=== PATIENT | male | born 1970 | race Caucasian/White ===

== ENCOUNTER 2018-10-18 09:41 | Emergency (ER) | payer OTHER ==
--- NOTE | 2018-10-18 11:06 | ER ---
Nurse's Notes [facility] Name: Phil Krishnan Age: 48 yrs Sex: Male : 1970 Arrival Date: 10/18/2018 Time: 09:47 Bed 20 Private MD: None, None Diagnosis: Deep Venous Thrombosis of LLE Presentation: 10/18 09:54 Presenting complaint: Patient states: left calf tenderness and swelling x 1 week, jl7 denies extended travel. Transition of care: patient was not received from another setting of care. Onset of symptoms was October 09, 2018. Risk Assessment: Do you want to hurt yourself or someone else? Patient reports no desire to harm self or others. Initial Sepsis Screen: Does the patient meet any 2 criteria? No. Patient's initial sepsis screen is negative. Does the patient have a suspected source of infection? No. Patient's initial sepsis screen is negative. Care prior to arrival: None. 09:54 Method Of Arrival: Ambulatory 7 09:54 Acuity: BUCKY 3 jl7 Triage Assessment: 09:56 General: Appears in no apparent distress. uncomfortable, Behavior is calm, cooperative, jl7 appropriate for age. Pain: Complains of pain in left calf Pain currently is 4 out of 10 on a pain scale. Quality of pain is described as tender, Pain began 1 week ago Is continuous. EENT: No signs and/or symptoms were reported regarding the EENT system. Neuro: Level of Consciousness is awake, alert, obeys commands, Oriented to person, place, time, situation. Cardiovascular: Patient's skin is warm and dry. Respiratory: Airway is patent Respiratory effort is even, unlabored, Respiratory pattern is regular, symmetrical. Derm: Skin is pink, warm \T\ dry. Historical: - Allergies: 09:56 No Known Allergies; jl7 - Home Meds: 09:56 None [Active]; jl7 - PMHx: 09:56 None; jl7 - Immunization history:: Adult Immunizations unknown. - Social history:: Smoking status: Patient/guardian denies using tobacco. - Ebola Screening: : No symptoms or risks identified at this time. - Family history:: not pertinent. - Hospitalizations: : No recent hospitalization is reported. Screenin:13 Abuse screen: Denies threats or abuse. Denies injuries from another. Nutritional bp screening: No deficits noted. Tuberculosis screening: No symptoms or risk factors identified. Fall Risk None identified. Assessment: 10:00 General: Appears in no apparent distress. comfortable, Behavior is cooperative, bp appropriate for age, anxious. Pain: Complains of pain in left calf. Neuro: Level of Consciousness is awake, alert, obeys commands, Oriented to person, place, time, situation, Appropriate for age. Cardiovascular: No deficits noted. Respiratory: Airway is patent Respiratory effort is even, unlabored, Respiratory pattern is regular, symmetrical. GI: No signs and/or symptoms were reported involving the gastrointestinal system. : No signs and/or symptoms were reported regarding the genitourinary system. EENT: No deficits noted. Derm: No deficits noted. Musculoskeletal: Swelling present in left calf. 10:57 Reassessment: MD AT B/S. PT U/S POSITIVE FOR DVT. bp 11:07 Reassessment: Sent fax to pharmacy for the Xarelto. rb1 11:37 Reassessment: PT D/C HOME AMBULATORY WITH FAMILY, DX WITH DVT. bp Vital Signs: 09:56 BP 143 / 66; Pulse 75; Resp 16 S; Pulse Ox 96% on R/A; Weight 131.54 kg (R); Height 5 jl7 ft. 9 in. (175.26 cm) (R); Pain 4/10; 10:58 BP 157 / 94; Pulse 62; Resp 14; Pulse Ox 97% ; bp 09:56 Body Mass Index 42.83 (131.54 kg, 175.26 cm) jl7 ED Course: 09:47 Patient arrived in ED. sb2 09:48 None, None is Private Physician. sb2 09:49 Orlando Cornelius, RN is Primary Nurse. bp 09:51 Jabari March MD is Attending Physician. rn 09:56 Triage completed. jl7 09:56 Arm band placed on right wrist. jl7 10:13 Patient has correct armband on for positive identification. Placed in gown. Bed in low bp position. Call light in reach. Side rails up X2. Adult w/ patient. 10:29 Patient taken to ultrasound. via wheelchair. lc3 10:30 Ultrasound completed. Patient tolerated well. Patient moved back from ultrasound. lc3 10:43 Extremity Venous Uni Ltd US In Process Unspecified. EDMS 11:37 No provider procedures requiring assistance completed. Patient did not have IV access bp during this emergency room visit. Administered Medications: 11:36 Drug: Xarelto 15 mg Route: PO; bp 11:36 Follow up: Response: Medication administered at discharge. bp Outcome: 11:01 Discharge ordered by . rn 11:37 Discharged to home ambulatory, with family. bp 11:37 Condition: stable 11:37 Discharge instructions given to patient, Instructed on discharge instructions, follow up and referral plans. medication usage, Demonstrated understanding of instructions, follow-up care, medications, Prescriptions given X 1. 11:38 Patient left the ED. bp Signatures: Dispatcher [employer] EDMS Jabari March MD MD rn Cunningham, Laulita lc3 Barber, Rebecca, RN RN rb1 Moraima Melendez RN RN [email or web address] Orlando Cornelius RN RN Margo Bolton sb2
--- NOTE | 2018-10-18 11:06 | EDPHYS ---
Physician Documentation [facility] Name: Phil Krishnan Age: 48 yrs Sex: Male : 1970 Arrival Date: 10/18/2018 Time: 09:47 Bed 20 Private MD: None, None ED Physician Jabari March HPI: 10/18 10:07 This 48 yrs old Male presents to ER via Ambulatory with complaints of POSS rn BLOOD CLOT. 10:07 The patient presents with pain, swelling. The complaints affect the medial aspect of rn left calf. Onset: The symptoms/episode began/occurred 1 week(s) ago. Modifying factors: The symptoms are alleviated by nothing. the symptoms are aggravated by nothing. Severity of symptoms: At their worst the symptoms were mild, in the emergency department the symptoms are unchanged. The patient has not experienced similar symptoms in the past. The patient has been recently seen by a physician:. Reports left leg swelling, began 1 week ago, drove from [place] on Wednesday, on Wednesday noticed swelling and mild soreness, no trauma, was walking a lot during weekend, no fever, no recent surgery. Sent by [facility] physician for evaluation of possible DVT, no hx of dvt/PE.. Historical: - Allergies: 09:56 No Known Allergies; jl7 - Home Meds: 09:56 None [Active]; jl7 - PMHx: 09:56 None; jl7 - Immunization history:: Adult Immunizations unknown. - Social history:: Smoking status: Patient/guardian denies using tobacco. - Ebola Screening: : No symptoms or risks identified at this time. - Family history:: not pertinent. - Hospitalizations: : No recent hospitalization is reported. ROS: 10:07 Constitutional: Negative for fever, chills, and weight loss, Eyes: Negative for injury, rn pain, redness, and discharge, Cardiovascular: Negative for chest pain, palpitations, and edema, Respiratory: Negative for shortness of breath, cough, wheezing, and pleuritic chest pain, Abdomen/GI: Negative for abdominal pain, nausea, vomiting, diarrhea, and constipation, MS/Extremity: + left leg pain and swelling, negative for injury Skin: Negative for injury, rash, and discoloration, Neuro: Negative for headache, weakness, numbness, tingling, and seizure. Exam: 10:07 Constitutional: This is a well developed, well nourished patient who is awake, alert, rn and in no acute distress. Skin: Warm, dry with normal turgor. Normal color with no rashes, no lesions, and no evidence of cellulitis. MS/ Extremity: Pulses equal, no cyanosis. Neurovascular intact. Full, normal range of motion. + LLE swelling with 1+ pitting edema and 2cm greater circumference. Vital Signs: 09:56 BP 143 / 66; Pulse 75; Resp 16 S; Pulse Ox 96% on R/A; Weight 131.54 kg (R); Height 5 jl7 ft. 9 in. (175.26 cm) (R); Pain 4/10; 10:58 BP 157 / 94; Pulse 62; Resp 14; Pulse Ox 97% ; bp 09:56 Body Mass Index 42.83 (131.54 kg, 175.26 cm) jl7 MDM: 09:51 Patient medically screened. rn 10:59 Differential diagnosis:. rn 10:59 Data reviewed: vital signs, nurses notes, radiologic studies, doppler, and as a result, rn I will discharge patient. Counseling: I had a detailed discussion with the patient and/or guardian regarding: the historical points, exam findings, and any diagnostic results supporting the discharge/admit diagnosis, radiology results, the need for outpatient follow up, to return to the emergency department if symptoms worsen or persist or if there are any questions or concerns that arise at home. Special discussion: I discussed with the patient/guardian in detail that at this point there is no indication for admission to the hospital. It is understood, however, that if the symptoms persist or worsen the patient needs to return immediately for re-evaluation. 10/18 09:58 Order name: Extremity Venous Swipe.to ; Complete Time: 11:23 rn Administered Medications: 11:36 Drug: Xarelto 15 mg Route: PO; bp 11:36 Follow up: Response: Medication administered at discharge. bp Disposition: 10/18/18 11:01 Discharged to Home. Impression: Deep Venous Thrombosis of LLE. - Condition is Stable. - Discharge Instructions: Deep Vein Thrombosis. - Prescriptions for Xarelto 20 mg Oral tablet - take 1 tablet by ORAL route once daily; 90 tablet. - Medication Reconciliation Form, Thank You Letter, Antibiotic Education, Prescription Opioid Use form. - Follow up: Private Physician; When: As needed; Reason: Recheck today's complaints, Re-evaluation by your physician. - Problem is an ongoing problem. - Symptoms are unchanged. Signatures: Dispatcher [employer] EDJabari Mcdowell MD MD rn Leal, Jahala, RN RN jl7 Orlando Cornelius RN RN bp Corrections: (The following items were deleted from the chart) 11:38 11:01 10/18/2018 11:01 Discharged to Home. Impression: Deep Venous Thrombosis of LLE. bp Condition is Stable. Forms are Medication Reconciliation Form, Thank You Letter, Antibiotic Education, Prescription Opioid Use. Follow up: Private Physician; When: As needed; Reason: Recheck today's complaints, Re-evaluation by your physician. Problem is an ongoing problem. Symptoms are unchanged. rn
[2018-10-18] MEDS ORDERED: RIVAROXABAN 15 MG TABLET PO ONE (11:15)
--- NOTE | 2018-10-18 11:21 | RAD REPORT ---
EXAM DESCRIPTION: US - Extremity Venous Uni Ltd - 10/18/2018 10:42 am CLINICAL HISTORY: Left leg pain and swelling COMPARISON: None. TECHNIQUE: Real-time sonographic evaluation of the left lower extremity deep venous systems was perf ormed. FINDINGS: Normal compressibility, flow augmentation, phasic flow and spontaneous flow are identified in the right lower extremity common femoral and superficial femoral veins. Echogenic material fills and enlarges the popliteal vein extending into the calf down to the posterior tibial vein level. Only minimal flow is demonstrated at the proximal most aspect of this DVT. No mass or abnormal fluid collection in the soft tissues. IMPRESSION: Acute left leg DVT from knee to ankle.
== END 2018-10-18 11:38 | disposition home or self-care (01) ==
LOC: ER 09:41
DX: I82.4Z2 Acute embolism and thrombosis of unspecified deep veins of left distal lower extremity (principal)
CPT/HCPCS: 93971; 99284

== ENCOUNTER 2021-04-16 07:20 | Emergency (ER) | payer OTHER ==
[2021-04-16] MEDS ORDERED: ONDANSETRON 4 MG/2 ML VIAL ONE (08:07)
[2021-04-16] MEDS ORDERED: MORPHINE 4 MG/ML SYR ONE ×2 (08:07→13:11)
[2021-04-16] MEDS ORDERED: NA CHLORIDE 0.9% 1,000 ML ONE (08:07)
[2021-04-16 08:14] LABS: Absolute Lymphocytes (CBC) 2.1 K/uL (0.7-4.9); Basophils % 0.5 % (0-1.3); Hematocrit 40.5 % (39.6-49.0); Lymphocytes % 35.5 % (15.3-44.8); MPV 8.8 fL (7.6-11.3); RBC Red Blood Cell Count 6.77 M/uL (4.33-5.43)
[2021-04-16 08:34] LABS: ALT/SGPT 55 U/L (12-78); AST/SGOT 28 U/L (15-37); Albumin 3.8 g/dL (3.4-5.0); Alkaline Phosphatase 84 U/L (45-117); BUN Blood Urea Nitrogen 15 mg/dL (7-18); Bicarbonate 26 mmol/L (21-32); Bilirubin Direct 0.2 mg/dL (0-0.2); Bilirubin Total 0.6 mg/dL (0.2-1.0); Glucose Level 91 mg/dL (74-106); Lipase 97 U/L (73-393); Protein, Total 6.6 g/dL (6.4-8.2); Sodium Level 141 mmol/L (136-145)
[2021-04-16 08:48] LABS: Urine Blood Negative (Negative); Urine Glucose Negative (Negative); Urine Protein Negative (Negative); Urine pH 5.5 (5.0-7.0)
[2021-04-16 08:55] LABS: Anisocytosis 2+; Blood Morphology Comment NOTED (NOT SEEN); Hypochromasia 2+; Platelet Estimate ADEQ; White Blood Cell Scan OK (OK)
--- NOTE | 2021-04-16 08:58 | RAD REPORT ---
EXAM DESCRIPTION: CTAbdomen Pelvis W Contrast - 04/16/2021 8:52 am CLINICAL HISTORY: Abdominal pain. left flank pain COMPARISON: No comparisons TECHNIQUE: Biphasic CT imaging of the abdomen and pelvis was performed with 100 ml non-ionic IV cont rast. All CT scans are performed using dose optimization technique as appropriate and may include automated exposure control or mA/KV adjustment according to patient size. FINDINGS: The lung bases are clear. Cholecystectomy clips. Postsurgical changes about the stomach no juan. The liver, spleen, pancreas, adrenal glands and kidneys are within normal limits. No bowel obstruction, free air, free fluid or abscess. Postsurgical changes along the small bowel in the right lower quadrant. The appendix is normal. No evidence of significant lymphadenopathy. No suspicious bony findings. IMPRESSION: No acute intra-abdominal or pelvic finding.
--- NOTE | 2021-04-16 13:39 | RAD REPORT ---
EXAM DESCRIPTION: MRI - Lumbar Spine Wo Con- 04/16/2021 12:35 pm CLINICAL HISTORY: PAIN Abdominal pain, radiculopathy COMPARISON: Abdomen Pelvis W Contrast dated 04/16/2021 FINDINGS: Vertebral body heights are within normal limits. Slight marrow edema is seen in the anterior superior L1 vertebral body along the left. This appears a ssociated with a large endplate osteophyte in this region. No acute fracture is suspected. The conus medullaris terminates at a normal level. No thickening of the cauda equina or clumping of n erve roots seen. L1-2 level: No significant findings. L2-3 level: Mild facet and ligamentum flavum hypertrophy with minimal posterior disc bulge. No signif icant canal or foraminal stenosis. L3-4 level: Broad-based mild to moderate posterior disc bulge is seen with mild facet and ligamentum flavum hypertrophy. No significant canal or foraminal stenosis. L4-5 level: Mild posterior disc bulge is seen with mild facet hypertrophy. Mild narrowing of the ante rior inferior aspects of both exit foramina. L5-S1 level: Mild posterior disc bulge is present without significant canal or foraminal stenosis. IMPRESSION: Mild lumbar degenerative spondylosis is present, most notable at L3-4. There is no high- grade canal stenosis or foraminal stenosis at any level. Subtle marrow edema along the left anterosuperiorly L1 vertebral body associated with probable anteri or disc herniation/osteophyte complex.
--- NOTE | 2021-04-16 14:00 | EDPHYS ---
Physician Documentation [facility] Name: Phil Krishnan Age: 50 yrs Sex: Male : 1970 Arrival Date: 04/16/2021 Time: 07:25 Bed 13 Private MD: ED Physician Que Fuentes HPI: 04/16 07:45 This 50 yrs old Male presents to ER via Ambulatory with complaints of Back pkl Pain. 07:45 The patient presents with pain that is acute. The symptoms are located in the left pkl flank. The pain does not radiate. Onset: The symptoms/episode began/occurred 3 week(s) ago, and became worse today. Associated signs and symptoms: The patient has no apparent associated signs or symptoms. Historical: - Allergies: 07:32 No Known Allergies; sv - PMHx: 07:32 None; sv - PSHx: 07:32 Bariatric; sv - Immunization history:: Client reports receiving the 2nd dose of the Covid vaccine, Client reports receiving the 1st dose of the Covid vaccine. - Social history:: Smoking status: Patient denies any tobacco usage or history of. ROS: 07:45 Eyes: Negative for injury, pain, redness, and discharge, ENT: Negative for injury, pkl pain, and discharge, Neck: Negative for injury, pain, and swelling, Cardiovascular: Negative for chest pain, palpitations, and edema, Respiratory: Negative for shortness of breath, cough, wheezing, and pleuritic chest pain, Abdomen/GI: Negative for abdominal pain, nausea, vomiting, diarrhea, and constipation. 07:45 Back: Positive for flank pain, on the left. 07:45 : Negative for urinary symptoms. 07:45 MS/extremity: Negative for acute changes. 07:45 Skin: Negative for rash. 07:45 Neuro: Negative for altered mental status. Exam: 07:45 Head/Face: Normocephalic, atraumatic. Eyes: Pupils equal round and reactive to light, pkl extra-ocular motions intact. Lids and lashes normal. Conjunctiva and sclera are non-icteric and not injected. Cornea within normal limits. Periorbital areas with no swelling, redness, or edema. ENT: Nares patent. No nasal discharge, no septal abnormalities noted. Tympanic membranes are normal and external auditory canals are clear. Oropharynx with no redness, swelling, or masses, exudates, or evidence of obstruction, uvula midline. Mucous membranes moist. Neck: Trachea midline, no thyromegaly or masses palpated, and no cervical lymphadenopathy. Supple, full range of motion without nuchal rigidity, or vertebral point tenderness. No Meningismus. Chest/axilla: Normal chest wall appearance and motion. Nontender with no deformity. No lesions are appreciated. Cardiovascular: Regular rate and rhythm with a normal S1 and S2. No gallops, murmurs, or rubs. Normal PMI, no JVD. No pulse deficits. Respiratory: Lungs have equal breath sounds bilaterally, clear to auscultation and percussion. No rales, rhonchi or wheezes noted. No increased work of breathing, no retractions or nasal flaring. Abdomen/GI: Soft, non-tender, with normal bowel sounds. No distension or tympany. No guarding or rebound. No evidence of tenderness throughout. 07:45 Back: pain, that is moderate, of the left flank. 07:45 : Exam negative for acute changes. 07:45 Musculoskeletal/extremity: Exam is negative for acute changes. 07:45 Skin: Exam negative for rash. 07:45 Neuro: Orientation: is normal, Mentation: is normal, Cranial nerves: grossly normal, Motor: is normal. Vital Signs: 07:31 Weight 131.54 kg; Height 5 ft. 9 in. (175.26 cm); Pain 7/10; sv 07:36 BP 139 / 82; Pulse 80; Pulse Ox 99% on R/A; ap3 08:09 BP 118 / 70; Pulse 78; Pulse Ox 100% on R/A; ap3 08:57 BP 125 / 63; Pulse 64; Pulse Ox 96% on R/A; ap3 09:53 BP 121 / 69; Pulse 62; Pulse Ox 97% on R/A; ap3 10:55 BP 121 / 72; Pulse 60; Resp 20; Pulse Ox 99% on R/A; kg 11:50 BP 141 / 66; Pulse 60; Resp 20; Pulse Ox 97% on R/A; kg 12:59 BP 124 / 53; Pulse 94; Resp 20; Pulse Ox 96% ; kg 13:21 BP 132 / 55; Pulse 59; Pulse Ox 97% on R/A; ap3 13:52 Pain 3/10; kg 07:31 Body Mass Index 42.83 (131.54 kg, 175.26 cm) sv MDM: 07:29 Patient medically screened. pkl 14:17 Data reviewed: vital signs, nurses notes, lab test result(s), radiologic studies. kdr Counseling: I had a detailed discussion with the patient and/or guardian regarding: the historical points, exam findings, and any diagnostic results supporting the discharge/admit diagnosis, lab results, radiology results, the need for outpatient follow up. ED course: The patient was stable in the ED and improved with interventions given. 14:17 Differential diagnosis: arthritis, strain, fracture, sciatica, Herniated disc. Response kdr to treatment: the patient's symptoms have mildly improved after treatment, patient is well hydrated. ED course: [employer] Aware: no results. 04/16 07:42 Order name: Basic Metabolic Panel; Complete Time: 09:44 pkl 04/16 07:42 Order name: CBC with Diff; Complete Time: 09:44 pkl 04/16 07:42 Order name: Hepatic Function; Complete Time: 09:44 pkl 04/16 07:42 Order name: Lipase; Complete Time: 09:44 pkl 04/16 08:15 Order name: CBC Smear Scan; Complete Time: 09:44 EDMS 04/16 08:48 Order name: Urine Dipstick-Ancillary; Complete Time: 09:44 EDMS 04/16 07:43 Order name: CT Abd/Pelvis - IV Contrast Only; Complete Time: 09:44 pkl 04/16 09:50 Order name: MRI Lumbar Spine wo Con; Complete Time: 13:42 pkl 04/16 07:42 Order name: IV Saline Lock; Complete Time: 08:09 pkl 04/16 07:42 Order name: Labs collected and sent; Complete Time: 08:09 pkl Administered Medications: 08:08 Drug: morphine 4 mg Route: IVP; Site: right antecubital; ap3 11:08 Follow up: Response: No adverse reaction; Pain is decreased; RASS: Alert and Calm (0) ap3 08:08 Drug: Zofran (Ondansetron) 4 mg Route: IVP; Site: right antecubital; ap3 11:08 Follow up: Response: No adverse reaction; Nausea is decreased ap3 08:09 Drug: NS 0.9% 1000 ml Route: IV; Rate: 125 ml/hr; Site: right antecubital; ap3 15:06 Follow up: Response: No adverse reaction; IV Status: Completed infusion ap3 12:58 Drug: morphine 4 mg Route: IVP; Site: right antecubital; kg 13:52 Follow up: Pain 3/10 Adult; Response: No adverse reaction; Pain is decreased kg 14:15 Drug: TORadol - (ketorolac) 15 mg Route: IVP; Site: right antecubital; kg 15:05 Follow up: Response: No adverse reaction; Pain is decreased ap3 14:16 Drug: SOLU-Medrol (methylPrednisoLONE) 125 mg Route: IVP; Site: right antecubital; kg 15:05 Follow up: Response: No adverse reaction ap3 14:23 Drug: Robaxin (methocarbamol) 1 grams Route: IVPB; Infused Over: 1 hrs; Site: right kg antecubital; Disposition: 04/16/21 13:59 Discharged to Home. Impression: Low back pain, Muscle spasm of back. - Condition is Stable. - Discharge Instructions: Back Injury Prevention, [id number], Back Pain, Adult, [id number], Back Exercises, [id number]. - Prescriptions for Ibuprofen 800 mg Oral Tablet - take 1 tablet by ORAL route every 8 hours As needed take with food; 15 tablet. Robaxin 500 mg Oral Tablet - take 2 tablet by ORAL route every 6 hours As needed; 40 tablet. Tylenol- Codeine #3 300-30 mg Oral Tablet - take 2 tablets by ORAL route every 4-6 hours As needed; 16 tablet. Medrol (Joel) 4 mg Oral Tablets, Dose Pack - take 1 tablet by ORAL route as directed - follow package instructions; 1 packet. - Medication Reconciliation Form, Thank You Letter form. - Follow up: Private Physician; When: 2 - 3 days; Reason: If symptoms return, Further diagnostic work-up, Recheck today's complaints, Continuance of care, Re-evaluation by your physician. - Problem is new. - Symptoms have improved. Signatures: Dispatcher [employer] Maria Steinberg RN RN sv Lam, Pin, MD MD pkl Rittger, Kevin, MD MD kdr Prokisch, Amanda, RN RN ap3 Addis Altamirano kg Corrections: (The following items were deleted from the chart) 15:04 13:59 04/16/2021 13:59 Discharged to Home. Impression: Low back pain; Muscle spasm of ap3 back. Condition is Stable. Forms are Medication Reconciliation Form, Thank You Letter, Antibiotic Education, Prescription Opioid Use. Follow up: Private Physician; When: 2 - 3 days; Reason: If symptoms return, Further diagnostic work-up, Recheck today's complaints, Continuance of care, Re-evaluation by your physician. Problem is new. Symptoms have improved. kdr
--- NOTE | 2021-04-16 14:00 | ER ---
Nurse's Notes [facility] Name: Phil Krishnan Age: 50 yrs Sex: Male : 1970 Arrival Date: 04/16/2021 Time: 07:25 Bed 13 Private MD: Diagnosis: Low back pain;Muscle spasm of back Presentation: 04/16 07:31 Chief complaint: Patient states: left low back pain for several weeks. Advil taken at sv 0100. Coronavirus screen: Client denies travel out of the [place] in the last 14 days. At this time, the client does not indicate any symptoms associated with coronavirus-19. Ebola Screen: No symptoms or risks identified at this time. Risk Assessment: Do you want to hurt yourself or someone else? Patient reports no desire to harm self or others. Onset of symptoms was March 2021. 07:31 Method Of Arrival: Ambulatory sv 07:31 Acuity: BUCKY 4 sv 07:36 Initial Sepsis Screen: Does the patient meet any 2 criteria? No. Patient's initial ap3 sepsis screen is negative. Does the patient have a suspected source of infection? No. Patient's initial sepsis screen is negative. Triage Assessment: 07:32 General: Appears in no apparent distress. uncomfortable, Behavior is calm, cooperative. sv Pain: Complains of pain in left low back. Neuro: Level of Consciousness is awake, alert, obeys commands, Gait is steady. Respiratory: Respiratory effort is even, unlabored. Historical: - Allergies: 07:32 No Known Allergies; sv - PMHx: 07:32 None; sv - PSHx: 07:32 Bariatric; sv - Immunization history:: Client reports receiving the 2nd dose of the Covid vaccine, Client reports receiving the 1st dose of the Covid vaccine. - Social history:: Smoking status: Patient denies any tobacco usage or history of. Screenin:36 Abuse screen: Denies threats or abuse. Nutritional screening: No deficits noted. ap3 Tuberculosis screening: No symptoms or risk factors identified. Fall Risk None identified. Assessment: 07:34 General: Appears in no apparent distress. comfortable, Behavior is calm, cooperative, ap3 appropriate for age. Pain: Complains of pain in left low back Pain does not radiate. Pain began began a few weeks ago, but states it has increased since he did house work last weekend. Is intermittent, Alleviated by medications, rest, Aggravated by increased activity. Neuro: Level of Consciousness is awake, alert, obeys commands, Oriented to person, place, time, situation, Gait is steady. Cardiovascular: Capillary refill < 3 seconds. Respiratory: Airway is patent Respiratory effort is even, unlabored, Respiratory pattern is regular, symmetrical. GI: No signs and/or symptoms were reported involving the gastrointestinal system. : No signs and/or symptoms were reported regarding the genitourinary system. EENT: No signs and/or symptoms were reported regarding the EENT system. Derm: No signs and/or symptoms reported regarding the dermatologic system. Derm: No signs and/or symptoms reported regarding the dermatologic system. Skin is pink, warm \T\ dry. 07:41 General: patient provided urinal and specimen container for urine sample collection. ap3 Patient educated on clean catch, and he verbalized understanding of instructions. . 08:58 Reassessment: Patient and/or family updated on plan of care and expected duration. Pain ap3 level reassessed. Patient states symptoms have improved. 09:54 Reassessment: Patient and/or family updated on plan of care and expected duration. Pain ap3 level reassessed. Patient is alert, oriented x 3, equal unlabored respirations, skin warm/dry/pink. 11:17 Reassessment: patient sitting in chair at the bedside, on his phone. Patient states is ap3 pain is decreased. 11:56 Reassessment: Pt left for MRI. kg 12:49 Reassessment: Pt returned from MRI. kg 13:09 Reassessment: Pt called out stating he was having back spasm pain from ranging from [address] Brewer aware and put in pain medications. . Vital Signs: 07:31 Weight 131.54 kg; Height 5 ft. 9 in. (175.26 cm); Pain 7/10; sv 07:36 BP 139 / 82; Pulse 80; Pulse Ox 99% on R/A; ap3 08:09 BP 118 / 70; Pulse 78; Pulse Ox 100% on R/A; ap3 08:57 BP 125 / 63; Pulse 64; Pulse Ox 96% on R/A; ap3 09:53 BP 121 / 69; Pulse 62; Pulse Ox 97% on R/A; ap3 10:55 BP 121 / 72; Pulse 60; Resp 20; Pulse Ox 99% on R/A; kg 11:50 BP 141 / 66; Pulse 60; Resp 20; Pulse Ox 97% on R/A; kg 12:59 BP 124 / 53; Pulse 94; Resp 20; Pulse Ox 96% ; kg 13:21 BP 132 / 55; Pulse 59; Pulse Ox 97% on R/A; ap3 13:52 Pain 3/10; kg 07:31 Body Mass Index 42.83 (131.54 kg, 175.26 cm) sv ED Course: 07:25 Patient arrived in ED. mr 07:29 Alexander Brewer MD is Attending Physician. pkl 07:31 Triage completed. sv 07:32 Arm band placed on. sv 07:33 Zeenat Hui, RAMEZ is Primary Nurse. ap3 07:37 Patient has correct armband on for positive identification. Pulse ox on. NIBP on. Door ap3 closed. Noise minimized. 07:42 ED physician to see patient. ap3 08:00 Inserted saline lock: 20 gauge in right antecubital area, using aseptic technique. ap3 Blood collected. 08:[address] via wheelchair. ap3 08:51 CT Abd/Pelvis - IV Contrast Only In Process Unspecified. EDMS 08:57 Patient moved back from [address]. ap3 12:35 MRI Lumbar Spine wo Con In Process Unspecified. EDMS 12:39 Patient moved back from MRI. ap3 12:51 Attending Physician role handed off by Alexander Brewer MD kdr 12:51 Que Fuentes MD is Attending Physician. kdr 15:06 No provider procedures requiring assistance completed. IV discontinued, intact, ap3 bleeding controlled, No redness/swelling at site. Pressure dressing applied. Administered Medications: 08:08 Drug: morphine 4 mg Route: IVP; Site: right antecubital; ap3 11:08 Follow up: Response: No adverse reaction; Pain is decreased; RASS: Alert and Calm (0) ap3 08:08 Drug: Zofran (Ondansetron) 4 mg Route: IVP; Site: right antecubital; ap3 11:08 Follow up: Response: No adverse reaction; Nausea is decreased ap3 08:09 Drug: NS 0.9% 1000 ml Route: IV; Rate: 125 ml/hr; Site: right antecubital; ap3 15:06 Follow up: Response: No adverse reaction; IV Status: Completed infusion ap3 12:58 Drug: morphine 4 mg Route: IVP; Site: right antecubital; kg 13:52 Follow up: Pain 3/10 Adult; Response: No adverse reaction; Pain is decreased kg 14:15 Drug: TORadol - (ketorolac) 15 mg Route: IVP; Site: right antecubital; kg 15:05 Follow up: Response: No adverse reaction; Pain is decreased ap3 14:16 Drug: SOLU-Medrol (methylPrednisoLONE) 125 mg Route: IVP; Site: right antecubital; kg 15:05 Follow up: Response: No adverse reaction ap3 14:23 Drug: Robaxin (methocarbamol) 1 grams Route: IVPB; Infused Over: 1 hrs; Site: right kg antecubital; Output: 10:30 Urine: 500ml (Voided); Total: 500ml. kg Outcome: 13:59 Discharge ordered by . kdr 15:04 Patient left the ED. ap3 15:06 Discharged to home ambulatory, with family. ap3 15:06 Condition: good 15:06 Discharge instructions given to patient, significant other, Instructed on discharge instructions, follow up and referral plans. medication usage, Demonstrated understanding of instructions, follow-up care, medications, Prescriptions given X 4. Signatures: Dispatcher [employer] Maria Steinberg RN RN Alexander Brewer MD MD pkl Rittger, Kevin, MD MD kdr Rivera, Mary mr Prokisch, Amanda, RN RN ap3 Addis Altamirano kg
[2021-04-16] MEDS ORDERED: METHYLPREDNISOLONE 125 MG INJ ONE (14:26)
[2021-04-16] MEDS ORDERED: KETOROLAC 30 MG/ML INJ ONE (14:26)
[2021-04-16 15:48] VITALS: BP 132/55; O2SAT 97
== END 2021-04-16 15:04 | disposition home or self-care (01) ==
LOC: ER 07:20
DX: M62.830 Muscle spasm of back (principal)
CPT/HCPCS: 85025; 80048; 36415; 80076; 81003; 83690; 74177; 72148; Q9967; J7030; J2930; J2405; J2800; 96361; 96374; 96375; 99284